=== PATIENT | male | born 1990 | race Caucasian/White ===

== ENCOUNTER → 2020-10-26 03:14 | Outpatient (CLI) | payer OTHER, SELFPAY ==
[2020-10-26 22:41] LABS: SARS-CoV-2 RNA PCR Negative
== END ==
PROVIDERS: Visit Provider Nurse Practitioner Adult Health
DX: Z20.822 Contact with and (suspected) exposure to COVID-19 (principal)
CPT/HCPCS: C9803; U0003; U0005

== ENCOUNTER 2022-02-25 22:06 | Emergency (ER) | payer OTHER, SELFPAY ==
--- NOTE | ~2022-02-25 | XR_ITS ---
EXAMINATION: XR foot LT min 3V DATE: 02/25/2022 23:00 INDICATION: Puncture wound to the plantar aspect of the left foot resulting from stepping on a juanita nail. TECHNIQUE: Dorsoplantar, two oblique and lateral views of the left foot were obtained. COMPARISON: None. FINDINGS: Bone alignment is normal. No fracture. Joint spaces are normal. Tiny lucency projecting over the soft tissues at the plantar aspect of the foot at the level of the mid metatarsals. No radiopaque foreign bodies. IMPRESSION: 1. No osseous abnormality or radiopaque foreign body. Reviewed, dictated and finalized at location A. ARYNGOLOGY NURSE
[2022-02-25 22:10] VITALS: BP 126/70; PULSE 73; RESP 18; TEMP 36.6; O2SAT 100
--- NOTE | 2022-02-25 22:29 | ED.WOUNDLAC ---
HPI - Wound/Laceration General Chief Complaint: Wound/Laceration Stated Complaint: Stepped on nail with left foot Time Seen by Provider: 02/25/22 22:24 History of Present Illness HPI narrative: Patient is a 31-year-old male here for evaluation of a puncture wound to the plantar aspect of his left foot sustained from a juanita nail at his yard. Patient was wearing [employer] shoes taking the trash out tonight when he accidentally stepped on the nail. The nail was removed at home. Has not taken any medications for pain. His last tetanus shot was over 12 years ago. He has been walking without issue. Related Data Allergies Allergy/AdvReac Type Severity Reaction Status Date / Time NKDA Allergy Mild Unknown Uncoded 02/25/22 22:12 Review of Systems Review of Systems: Gen.: Denies fevers or chills Eyes: Denies eye pain or visual change ENT: Denies congestion Respiratory: Denies shortness of breath or cough CV: Denies chest pain or palpitations GI: Denies abdominal pain nausea, emesis or diarrhea denies burning, urgency, frequency or hematuria Musculoskeletal: Reports left foot pain Neuro: Denies numbness, tingling, weakness or focal weakness Skin: Denies rash Except as documented, all other systems reviewed and negative PMFSH Past Medical History Medical History Kidney stone No pertinent family history Surgical History Surgical History No significant past surgical history Social History Social History (Updated 01/07/19 @ 15:35 by FLOR Grace) Smoking status: Never smoker Exam Narrative: APPEARANCE: Well appearing, no pain in distress, well-nourished. Head: Normocephalic and atraumatic. EYES: PERRLA/EOMI, conjunctivae clear NOSE: No nasal drainage EARS: External ear normal in appearance THROAT: Oropharynx is clear. Mucous membranes are moist. NECK: Supple. No adenopathy, no masses. RESPIRATORY: Airway patent, respirations nonlabored. Clear to auscultation bilaterally, no rales, rhonchi, wheezing. CARDIOVASCULAR: Regular rate and rhythm without murmurs, rubs, or gallops. ABDOMINAL: Normoactive bowel sounds. Soft, nontender, nondistended. No rebound tenderness or guarding. MUSCULOSKELETAL: Extremities are warm and well-perfused. Moves all extremities well. No edema. NEURO: Normal speech. No focal neurologic deficits. SKIN: patient has puncture wound to the plantar aspect of the left foot with no active bleeding PSYCHIATRIC: Normal affect/mood. Course Vital Signs Vital signs: Vital Signs Temperature 97.8 F 02/25/22 22:10 Pulse Rate 73 02/25/22 22:10 Respiratory Rate 18 02/25/22 22:10 Blood Pressure 126/70 02/25/22 22:10 Pulse Oximetry 100 02/25/22 22:10 Oxygen Delivery Room Air 02/25/22 22:10 Temperature 97.8 F 02/25/22 22:10 Pulse Rate 73 02/25/22 22:10 Respiratory Rate 18 02/25/22 22:10 Blood Pressure 126/70 02/25/22 22:10 Pulse Oximetry 100 02/25/22 22:10 Oxygen Delivery Room Air 02/25/22 22:10 MDM - Wound/Laceration MDM Narrative Medical decision making narrative: 31-year-old male here for evaluation of a small puncture wound to the plantar aspect of the right foot after stepping on a juanita nail. Tetanus was updated today. X-ray does not show any acute findings. The wound was irrigated and cleansed. He will be discharged home with antibiotics. Encouraged him to follow-up with his regular doctor in the next few days. Return precautions discussed and he voiced understanding. Discharge Plan Discharge Clinical Impression: Puncture wound Patient Disposition: Home, Self-Care Condition: Stable Instructions: Antibiotic Form, Puncture Wound (ED) Additional Instructions: Your tetanus was updated today. There is no fractures on the x-ray of the foot. Please take antibiotics as directed to avoid infection. Follow-up with
[2022-02-25] MEDS: TETANUS,DIPHTHERIA,AC PERTUSSIS ADULT (0.5 ML) BOOSTRIX IM (22:41)
== END 2022-02-25 23:48 | disposition home or self-care (01) ==
PROVIDERS: Emergency Provider Physician Assistant
DX: S91.332A Puncture wound without foreign body, left foot, initial encounter (principal); Z23 Encounter for immunization; Z87.442 Personal history of urinary calculi; W45.0XXA Nail entering through skin, initial encounter
CPT/HCPCS: 73630; 90471; 90715; 99283